=== PATIENT | male | born 1995 | race Hispanic/Latino ===

== ENCOUNTER → 2024-06-08 | Outpatient (CLI) | LOC: M SOG 07:54 | PROVIDERS: ATTEND Physician Assistant | DX: M79.641 Pain in right hand (principal) ==

== ENCOUNTER 2024-06-15 10:39 | Day surgery (SDC) | payer OTHER ==
[~2024-06-15] VITALS: Ht 170.2 cm; Wt 113.7 kg
[~2024-06-15 10:39] MED LIST: LIDOCAINE W/EPINEPHRINE 1% 20ML VIAL XX ONE; SODIUM BICARBONATE 8.4% INJ 50MEQ 50ML VIAL XX ONE
[2024-06-15] MEDS ORDERED: SODIUM BICARBONATE 8.4% INJ 50MEQ 50ML VIAL XX ONE (11:10)
[2024-06-15] MEDS ORDERED: LIDOCAINE 1% SDV 30ML VIAL XX ONE (11:10)
[2024-06-15] MEDS: BACITRACIN OINTMENT 30GM TUBE As Ordered ONE (12:15)
[2024-06-15 12:30] VITALS: BP 126/67; TEMP 97.9; O2SAT 98
== END 2024-06-15 12:42 | disposition home or self-care (01) ==
LOC: M SDC 10:39
PROVIDERS: ATTEND Orthopaedic Surgery Hand Surgery
DX: M20.011 Mallet finger of right finger(s) (principal)
CPT/HCPCS: 26432; 76000; J0665

== ENCOUNTER → 2024-06-25 | Outpatient (CLI) | payer OTHER | LOC: M SOG 07:49 | PROVIDERS: ATTEND Physician Assistant | DX: M20.011 Mallet finger of right finger(s) (principal) ==

== ENCOUNTER → 2024-07-02 | Outpatient (CLI) | payer OTHER | LOC: M SOG 07:57 | PROVIDERS: ATTEND Physician Assistant | DX: M20.011 Mallet finger of right finger(s) (principal) ==

== ENCOUNTER → 2024-07-09 | Outpatient (CLI) | payer OTHER | LOC: M SOG 07:54 | PROVIDERS: ATTEND Physician Assistant | DX: M20.011 Mallet finger of right finger(s) (principal) ==

== ENCOUNTER → 2024-08-17 | Outpatient (CLI) | payer OTHER | LOC: M SOG 07:51 | PROVIDERS: ATTEND Physician Assistant | DX: S62.632D Displaced fracture of distal phalanx of right middle finger, subsequent encounter for fracture with routine healing (principal) ==

== ENCOUNTER → 2024-08-27 | Outpatient (CLI) | payer OTHER | LOC: M SOG 08:02 | PROVIDERS: ATTEND Physician Assistant | DX: S62.632D Displaced fracture of distal phalanx of right middle finger, subsequent encounter for fracture with routine healing (principal) ==

== ENCOUNTER 2025-04-06 20:42 | Emergency (ER) | payer OTHER ==
[~2025-04-06] VITALS: Ht 170.2 cm; Wt 94.5 kg
[2025-04-06 21:20] LABS: BASO # 0.1 10^3/uL (0.0-0.2); BASO % 0.6 % (0.0-1.0); EOS # 0.2 10^3/uL (0.0-0.5); EOS % 1.5 % (0.0-3.0); LYMPH # 2.4 10^3/uL (1.5-5.0); LYMPH % 21.1 % (24.0-44.0); MONO # 0.9 10^3/uL (0.0-0.8); MONO % 8.3 % (2.0-8.0); NEUTROPHILS # 7.7 10^3/uL (1.5-8.5); NEUTROPHILS % 68.3 % (36.0-66.0); PLATELET COUNT, AUTOMATED 375 10^3/uL (150-450)
[2025-04-06] MEDS: ASPIRIN 81 MG CHEWABLE TABLET PO ONE (21:48)
[2025-04-06 22:12] LABS: CK-MB VALUE MASS < 1.0 NG/ML (<3.6)
[2025-04-06 22:13] LABS: CALCIUM LEVEL 8.5 MG/DL (8.5-10.1); CARBON DIOXIDE LEVEL 24 MMOL/L (20-31); CHLORIDE LEVEL 106 MMOL/L (98-107); CREATININE FOR GFR 1.09 MG/DL (0.70-1.30); GLOMERULAR FILTRATION RATE > 90.0 (>60); POTASSIUM SERUM 3.7 MMOL/L (3.5-5.1); SODIUM LEVEL 142 MMOL/L (136-145)
[2025-04-06 22:14] LABS: CPK CREATINE PHOSPHOKINASE 285 U/L (46-171)
[2025-04-06 22:53] LABS: CK-MB VALUE MASS < 1.0 NG/ML (<3.6)
[2025-04-06 22:54] LABS: CPK CREATINE PHOSPHOKINASE 292 U/L (46-171)
[2025-04-06 23:15] VITALS: BP 102/55; TEMP 98.3; O2SAT 96
== END 2025-04-06 23:20 | disposition home or self-care (01) ==
LOC: M ED 20:42
DX: R07.89 Other chest pain (principal); F17.290 Nicotine dependence, other tobacco product, uncomplicated; F10.10 Alcohol abuse, uncomplicated